=== PATIENT | female | born 1980 | race Caucasian/White ===

== ENCOUNTER → 2016-08-30 | Outpatient (CLI) | payer OTHER ==
[2016-06-19 12:14] VITALS: BP 115/80
--- NOTE | 2016-08-30 16:25 | MRI ---
HISTORY: Muscle strain, neck pain, numbness and tingling Study: MRI cervical spine without contrast Comparison: Radiographs 07/12/2016 Technique: Multiplanar multisequence MRI of the cervical spine was obtained utilizing standard depar tmental protocol. Findings: Alignment of the cervical spine is normal. No abnormal cord or marrow signal is identified. Verteb ral body heights are preserved without evidence of fracture. The prevertebral and paraspinal soft ti ssues are unremarkable. The disc spaces are preserved. C2 -- C3: No significant stenosis identified. C3 -- C4: No significant stenosis identified. C4 -- C5: No significant stenosis identified. C5 -- C6: No significant stenosis identified. C6 -- C7: No significant stenosis identified. C7 -- T1: No significant stenosis identified. IMPRESSION: Unremarkable MRI cervical spine. No significant spinal or foraminal stenosis identified. Reported By:
== END ==
LOC: RAD 13:20
PROVIDERS: ATTEND Nurse Practitioner Family
DX: S16.1XXA Strain of muscle, fascia and tendon at neck level, initial encounter (principal); M54.2 Cervicalgia; R20.2 Paresthesia of skin; M25.531 Pain in right wrist; M25.532 Pain in left wrist
CPT/HCPCS: 72141

== ENCOUNTER 2016-09-20 13:14 | Emergency (ER) | payer OTHER ==
[2016-09-20 13:18] VITALS: BP 141/77; BMI 21.7
--- NOTE | 2016-09-20 13:45 | DR.GENAD ---
HPI - PCP Primary Care Physician: fernando huerta - HPI Comment HPI Comment: PATIENT HAVE HISTORY OF RECTAL BLEEDING. SHE NOTED MELENA STOOL TODAY. DENIES USE OF IRON. ABDOMINAL CRAMPING IS ALSO NOTED. PCP WANTED HER EVALUATED IN ED. DENIES DIZZINESS. - Complaint/Symptoms Chief Complaint Doctors Comments: ABDOMINAL PAIN AND BLACK STOOL NOTED TODAY. Chief Complaint:: black stool, rectal bleeding, abdominal pain - Nurses notes reviewed Nurses Notes Review: Yes - Source History Provided: Patient - Mode of Arrival Mode of Arrival: Ambulatory - Timing Onset of Chief Complaint: 09/20/16 Came on: Suddenly - Duration Duration: Intermittent Duration: Days - Severity Severity: Moderate PMH - PMH Past Medical History: Yes Past Medical History: Seizures Past Surgical History: Yes Surgical History: Appendectomy, Other - Family History History of Family Medical Conditions: Yes Family Medical History: [place], Coronary Artery Disease - Social History Does patient currently use any type of tobacco product: Yes Have you used tobacco products in the last 12 months: Yes Type of Tobacco Use: Cigarettes Does any household member use tobacco: No Alcohol Use: None Do you use any recreational Drugs:: No Lives With: Family Lives Where: Home - infectious screening In the last 2 months have you had wt loss of >10#?: NO Have you had fever, night sweats or hemotysis?: No Have you traveled outside the country in the last 6 months?: No Isolation: Standard ROS - Review of Systems Constitutional: Weakness. negative: Chills, Malaise, Fatigue, Loss of Appetite Eyes: No Symptoms Reported. negative: Eye Pain, Blurred Vision, Discharge ENTM: negative: Ear Pain, Nose Discharge, Nose Congestion, Throat Pain Respiratoy: negative: Productive Cough, Short of Breath, Wheezing, Hemoptysis Cardiovascular: No Symptoms Reported. negative: Chest Pain, Palpitations Gastrointestinal/Abdominal: Abdominal Pain, Nausea. negative: Diarrhea, Vomiting Genitourinary: Pain, Bleeding (RECTAL). negative: Dysuria, Frequency, Hematuria Neurological: Weakness. negative: Headache, Dizziness Musculoskeletal: Muscle Pain Integumentary: No Symptoms Reported Hematologic/Lymphatic: Easy Bleeding Endocrine: No Symptoms Reported All Other Systems: Reviewed and Negative PE - Vital Signs Vitals: Temperature 99.4 F Pulse Rate 125 Respiratory Rate 16 Blood Pressure [Left Arm] 114/58 Blood Pressure 141/77 O2 Sat by Pulse Oximetry 100 - General Limitations: No Limitations General Appearance: Alert - Head Head Exam: Normal Inspection - Eyes Eye exam: Normal Appearance - ENT ENT Exam: Normal External Ear Exam External Ear Exam: Normal External Inspection TM/Canal Exam: Bilateral Normal Nose Exam: Normal Nose Exam Mouth Exam: Normal Inspection Throat Exam: Normal Inspection - Neck Neck Exam: Trachea Midline. negative: Tenderness, Meningismus, Lymphadenopathy - Chest Chest Inspection: Symmetric Chest Wall Rise - Respiratory Respiratory Exam: Normal Lung Sounds Bilat Respiratory Exam: Bilateral Clear to Auscultation - Cardiovascular Cardiovascular Exam: Regular Rate, Normal Rhythm, Normal Heart Sounds - Abdominal Exam Abdominal Exam: Normal Bowel Sounds, Soft. negative: Tenderness, Other (NO HEMOEEHOID SEEN.) Abdominal Tenderness: RLQ, LLQ, Suprapubic, Moderate - Extremities Extremities Exam: Normal Inspection - Back Back Exam: Normal Inspection - Neurologic Neurological Exam: Alert, Oriented X3 - Psychiatric Psychiatric Exam: Normal Affect, Normal Mood - Skin Skin Exam: Normal Color MDM - Differential Diagnosis Differential Diagnosis: ABDOMINAL PAIN, HEMORRHOID, UTI, POLYPS, PUD Course - Treatment Treatment: SEE ORDERS. - Education/Counseling Education/Counseling: Patient, Education Educated On: Treatment, Diagnosis, Needs for Follow Up ROR - Labs Reviewed Laboratory Results Reviewed?: Yes Result Diagrams: 09/20/16 14:10 09/20/16 14:10 Laboratory: WBC 5.7 X10^3/uL (3.6-10.0) 09/20/16 14:10 RBC 5.02 X10^6/uL (3.5-5.4) 09/20/16 14:10 Hgb 14.8 g/dL (12.0-16.0) 09/20/16 14:10 Hct 44.9 % (36.0-47.0) 09/20/16 14:10 MCV 89.4 fL (80.0-100.0) 09/20/16 14:10 MCH 29.6 pg (27.0-34.0) 09/20/16 14:10 MCHC 33.1 g/dL (33.0-35.0) 09/20/16 14:10 RDW 12.6 % (11.6-16.5) 09/20/16 14:10 Plt Count 173 X10^3/uL (150.0-450.0) 09/20/16 14:10 MPV 8.3 fL (7.4-11.0) 09/20/16 14:10 Neut % 58.5 % (42.0-75.0) 09/20/16 14:10 Lymph % 27.5 % (21.0-51.0) 09/20/16 14:10 Dawson % 11.2 % (0.0-13.0) 09/20/16 14:10 Eos % 1.9 % (0.9-2.9) 09/20/16 14:10 Baso % 0.9 % (0.2-1.0) 09/20/16 14:10 Neut # 3.4 x10^3/uL (2.2-4.8) 09/20/16 14:10 Lymph # 1.6 X10^3/uL (1.3-2.9) 09/20/16 14:10 Dawson # 0.6 x10^3/uL (0.3-0.8) 09/20/16 14:10 Eos # 0.1 x10^3/uL (0.0-0.2) 09/20/16 14:10 Baso # 0.1 X10^3/uL (0.0-0.1) 09/20/16 14:10 Absolute Nucleated RBC 0.0 /100WBC 09/20/16 14:10 Sodium 141 mmol/L (136-145) 09/20/16 14:10 Corrected Sodium TNP 09/20/16 14:10 Potassium 3.9 mmol/L (3.5-5.1) 09/20/16 14:10 Chloride 105 mmol/L (98-107) 09/20/16 14:10 Carbon Dioxide 27.0 mmol/L (21-32) 09/20/16 14:10 BUN 14 mg/dL (7-18) 09/20/16 14:10 Creatinine 0.96 mg/dL (0.55-1.02) 09/20/16 14:10 Est GFR (MDRD) Af Amer > 60 (>60) 09/20/16 14:10 Est GFR (MDRD) Non-Af > 60 (>60) 09/20/16 14:10 Glucose 79 mg/dL (65-99) 09/20/16 14:10 Calcium 9.2 mg/dL (8.5-10.1) 09/20/16 14:10 Corrected Calcium TNP 09/20/16 14:10 Total Bilirubin 0.70 mg/dL (0.2-1.0) 09/20/16 14:10 AST 47 Units/L (15-37) H 09/20/16 14:10 ALT 52 Units/L (12-78) 09/20/16 14:10 Alkaline Phosphatase 58 Units/L (46-116) 09/20/16 14:10 Total Protein 8.1 g/dL (6.4-8.2) 09/20/16 14:10 Albumin 4.1 g/dL (3.4-5.0) 09/20/16 14:10 Globulin 4.0 g/dL (2.5-4.5) 09/20/16 14:10 Albumin/Globulin Ratio 1.0 Ratio (1.1-2.1) L 09/20/16 14:10 Stool Description Fob tube 09/20/16 14:09 Stl Occult Blood (IFOB) Negative (NEGATIVE) 09/20/16 14:09 - XRAY XRAY Interpreted by: Radiologist XRAY Findings: REPORT DISCUSS WITH PATIENT. - Diagnosis Discharge Problem: History of melena Abdominal pain Qualifiers: Abdominal location: lower abdomen, unspecified Qualified Code(s): R10.30 - Lower abdominal pain, unspecified - Discharge Plan Disposition: HOME, SELF-CARE Condition: Stable Prescriptions: Ranitidine HCl [ZANTAC TAB 150 MG *] 150 mg PO BID #60 tab - Follow ups/Referrals Follow ups/Referrals: FERNANDO HUERTA [Primary Care Provider] - 09/21/16 - Instructions Instructions: Abdominal Pain, Adult, [id number], Gastrointestinal Bleeding Additional Instructions: RETURN TO ED IF WORSE.
[2016-09-20 14:18] LABS: BASOPHILS # (AUTO) 0.1 X10^3/uL (0.0-0.1); BASOPHILS % (AUTO) 0.9 % (0.2-1.0); EOSINOPHILS # (AUTO) 0.1 x10^3/uL (0.0-0.2); EOSINOPHILS % (AUTO) 1.9 % (0.9-2.9); HEMATOCRIT 44.9 % (36.0-47.0); HEMOGLOBIN 14.8 g/dL (12.0-16.0); LYMPHOCYTES # (AUTO) 1.6 X10^3/uL (1.3-2.9); LYMPHOCYTES % (AUTO) 27.5 % (21.0-51.0); MEAN CORPUSCULAR HEMOGLOBIN 29.6 pg (27.0-34.0); MEAN CORPUSCULAR HGB CONC 33.1 g/dL (33.0-35.0); MEAN CORPUSCULAR VOLUME 89.4 fL (80.0-100.0); MEAN PLATELET VOLUME 8.3 fL (7.4-11.0); MONOCYTES # (AUTO) 0.6 x10^3/uL (0.3-0.8); MONOCYTES % (AUTO) 11.2 % (0.0-13.0); NEUTROPHILS # (AUTO) 3.4 x10^3/uL (2.2-4.8); NEUTROPHILS % (AUTO) 58.5 % (42.0-75.0); PLATELET COUNT 173 X10^3/uL (150.0-450.0); RED BLOOD COUNT 5.02 X10^6/uL (3.5-5.4); RED CELL DISTRIBUTION WIDTH 12.6 % (11.6-16.5); WHITE BLOOD COUNT 5.7 X10^3/uL (3.6-10.0)
--- NOTE | 2016-09-20 14:34 | RAD ---
HISTORY: Abdominal pain Study: Acute abdominal series Comparison: April 12, 2016 Findings: The trachea is midline. The cardiac silhouette is unremarkable. The lungs are clear without focal infiltrate or effusion. The bony thorax is unremarkable. Flat plate and upright evaluation of the abdomen demonstrates a normal bowel gas pattern. No pneumop eritoneum is identified . . No pathological soft tissue mass or calcification can be observed. The bony structures are grossly intact. IMPRESSION: 1. No acute cardiopulmonary disease. 2. No evidence for acute abdominal pathology identified. Reported By:
[2016-09-20 14:40] LABS: ALANINE AMINOTRANSFERASE 52 Units/L (12-78); ALBUMIN 4.1 g/dL (3.4-5.0); ALKALINE PHOSPHATASE 58 Units/L (46-116); ASPARTATE AMINO TRANSFERASE 47 Units/L (15-37); BLOOD UREA NITROGEN 14 mg/dL (7-18); CALCIUM 9.2 mg/dL (8.5-10.1); CHLORIDE 105 mmol/L (98-107); CREATININE 0.96 mg/dL (0.55-1.02); GLUCOSE 79 mg/dL (65-99); SODIUM 141 mmol/L (136-145); TOTAL PROTEIN 8.1 g/dL (6.4-8.2); eGFR BLACK RACES > 60 (>60); eGFR NON BLACK RACES > 60 (>60)
== END 2016-09-20 15:40 | disposition home or self-care (01) ==
LOC: ER 13:29
DX: R10.31 Right lower quadrant pain (principal); Z87.19 Personal history of other diseases of the digestive system
CPT/HCPCS: 36415; 74022; 80053; 82270; 85025; 99282

== ENCOUNTER 2016-12-29 20:14 | Emergency (ER) | payer OTHER ==
[2016-12-29 20:20] VITALS: BP 119/75; BMI 18.8
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
--- NOTE | 2016-12-29 21:27 | RAD ---
History: Pain after injury to nose this morning Study: Four views of the nasal bones Findings: There is no fracture or depression. The paranasal sinuses are grossly clear. Impression: Negative Reported By:
[2016-12-29] MEDS ORDERED: TORADOL 60 MG VIAL IM ONE (21:37)
[2016-12-29] MEDS ORDERED: TORADOL 60 MG VIAL ONE (21:39)
== END 2016-12-29 22:20 | disposition home or self-care (01) ==
LOC: ER 20:27
DX: S00.33XA Contusion of nose, initial encounter (principal); X58.XXXA Exposure to other specified factors, initial encounter; Y92.9 Unspecified place or not applicable
CPT/HCPCS: 70160; 96372; 99282; J1885

== ENCOUNTER 2017-02-14 18:30 | Emergency (ER) | payer OTHER ==
[2017-02-14 18:35] VITALS: BP 137/86; BMI 18.6
--- NOTE | 2017-02-14 19:16 | DR.GENAD ---
HPI - Complaint/Symptoms Chief Complaint Doctors Comments: Patient states that she stands on her feet 12- `13 hours per day for six days while working. 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 - Family History History of Family Medical Conditions: Yes Family Medical History: [place], Coronary Artery Disease - Social History Do you use any recreational Drugs:: No - infectious screening Have you traveled outside the country in the last 6 months?: No ROS - Review of Systems Constitutional: negative: Diaphoresis Eyes: No Symptoms Reported ENTM: No Symptoms Reported Respiratoy: No Symptoms Reported Cardiovascular: No Symptoms Reported Gastrointestinal/Abdominal: No Symptoms Reported Genitourinary: No Symptoms Reported Neurological: No Symptoms Reported Musculoskeletal: No Symptoms Reported Integumentary: No Symptoms Reported Hematologic/Lymphatic: No Symptoms Reported Endocrine: No Symptoms Reported Psychiatric: No Symptoms Reported All Other Systems: Reviewed and Negative PE - Vital Signs Vitals: Temperature 98.2 F Pulse Rate 100 Respiratory Rate 18 Blood Pressure [Left Arm] 114/58 Blood Pressure 137/86 O2 Sat by Pulse Oximetry 100 - General Limitations: No Limitations General Appearance: Alert, In No Apparent Distress - Head Head Exam: Normal Inspection, Atraumatic - Eyes Eye exam: Normal Appearance, PERRL, EOMI - ENT ENT Exam: Normal Exam External Ear Exam: Normal External Inspection TM/Canal Exam: Bilateral Normal Nose Exam: Normal Nose Exam, Sinus Tenderness Mouth Exam: Normal Inspection Throat Exam: Normal Inspection - Neck Neck Exam: Normal Inspection - Chest Chest Inspection: Normal Inspection - Respiratory Respiratory Exam: Normal Lung Sounds Bilat Respiratory Exam: Bilateral Clear to Auscultation - Cardiovascular Cardiovascular Exam: Regular Rate, Normal Rhythm - Abdominal Exam Abdominal Exam: Normal Inspection, Normal Bowel Sounds Abdominal Tenderness: negative: RUQ, RLQ, LUQ, LLQ, Epigastrium, Suprapubic, Diffuse, Mild, Moderate, Severe, Other - Extremities Extremities Exam: Normal Inspection, Full ROM, Other (right foot admits to pain to touching heel) - Back Back Exam: Normal Inspection, Full ROM - Neurologic Neurological Exam: Alert, Oriented X3, CN II-XII Intact - Psychiatric Psychiatric Exam: Normal Affect, Normal Mood - Skin Skin Exam: Warm, Dry, Intact ROR - XRAY XRAY Interpreted by: Self (Foot: negative) - Diagnosis Discharge Problem: Plantar fasciitis, right - Discharge Plan Condition: Stable - Follow ups/Referrals Follow ups/Referrals: SIGRID DUNLAP [Primary Care Provider] - 3 days - Instructions
--- NOTE | 2017-02-14 22:12 | RAD ---
Three views of the right foot Indication: Heel pain. Findings: There is no fracture dislocation within the right foot. Lisfranc joint alignment is maintai jade. No localizing soft tissue swelling. No enthesopathic change of the plantar fascia or Achilles te ndon. There is moderate degenerative change within dorsal talonavicular joint suspected represent seq uela chronic talonavicular capsular avulsion injury. No localizing soft tissue swelling. Impression: 1.No acute radiographic abnormality identified within the right foot. 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 Reported By:
== END 2017-02-14 20:05 | disposition home or self-care (01) ==
LOC: ER 18:40
DX: M72.2 Plantar fascial fibromatosis (principal)
CPT/HCPCS: 73630; 99281; 99282

== ENCOUNTER → 2017-03-15 | Outpatient (CLI) | payer OTHER ==
[2017-02-14 18:35] VITALS: BP 137/86
--- NOTE | 2017-03-15 10:10 | RAD ---
HISTORY: Cough Study: Two views of the chest Comparison: 09/20/2016 Findings: The patient is rotated. The cardiac silhouette is unremarkable. The lungs are clear without focal i nfiltrate or effusion. IMPRESSION: 1. No acute cardiopulmonary disease. Reported By:
== END ==
LOC: RAD 09:16
PROVIDERS: ATTEND Nurse Practitioner Family
DX: R05 Cough (principal)
CPT/HCPCS: 71020

== ENCOUNTER 2017-06-24 18:36 | Emergency (ER) | payer OTHER ==
[2017-06-24 18:48] VITALS: BMI 20.3
--- NOTE | 2017-06-24 19:17 | DR.GENAD ---
HPI - PCP Primary Care Physician: GERMÁN - HPI Comment HPI Comment: DIARRHEA DECREASING. HEADACHE GETTING WORSE. HOME MEDS DID NOT HELP. - Complaint/Symptoms Chief Complaint Doctors Comments: MIGRAINE HEADACHE AND DIARRHEA. HEADACHE WITH N/V AND PHOTOPHOBIA. NO FEVER. 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 Past Surgical History Comment: SINUS - Family History History of Family Medical Conditions: Yes Family Medical History: [place], Coronary Artery Disease - Social History Type of Tobacco Use: Cigarettes Does any household member use tobacco: No Alcohol Use: None Do you use any recreational Drugs:: No Lives With: Family Lives Where: Home - infectious screening In the last 2 months have you had wt loss of >10#?: NO Have you had fever, night sweats or hemotysis?: No Have you traveled outside the country in the last 6 months?: No Isolation: Standard ROS - Review of Systems Constitutional: No Symptoms Reported Eyes: Photophobia. negative: Eye Pain, Discharge ENTM: No Symptoms Reported. negative: Ear Pain, Nose Discharge, Nose Congestion , Throat Pain Respiratoy: No Symptoms Reported Cardiovascular: No Symptoms Reported Gastrointestinal/Abdominal: Diarrhea, Nausea, Vomiting Genitourinary: No Symptoms Reported Neurological: Headache Musculoskeletal: No Symptoms Reported Integumentary: No Symptoms Reported Hematologic/Lymphatic: No Symptoms Reported Endocrine: No Symptoms Reported All Other Systems: Reviewed and Negative PE - Vital Signs Vitals: Temperature 98.5 F Pulse Rate 85 Respiratory Rate 18 Blood Pressure [Left Arm] 114/58 Blood Pressure 96/54 O2 Sat by Pulse Oximetry 100 - General Limitations: No Limitations General Appearance: Alert - Head Head Exam: Normal Inspection - Eyes Eye exam: Normal Appearance - ENT ENT Exam: Normal External Ear Exam External Ear Exam: Normal External Inspection TM/Canal Exam: Bilateral Normal Nose Exam: Normal Nose Exam Mouth Exam: Normal Inspection Throat Exam: Normal Inspection - Neck Neck Exam: Normal Inspection - Chest Chest Inspection: Symmetric Chest Wall Rise - Respiratory Respiratory Exam: Normal Lung Sounds Bilat Respiratory Exam: Bilateral Clear to Auscultation - Cardiovascular Cardiovascular Exam: Regular Rate, Normal Rhythm, Normal Heart Sounds - Abdominal Exam Abdominal Exam: Normal Bowel Sounds, Soft. negative: Tenderness - Extremities Extremities Exam: Normal Inspection - Back Back Exam: Normal Inspection - Neurologic Neurological Exam: Alert, Oriented X3 - Psychiatric Psychiatric Exam: Normal Affect, Normal Mood - Skin Skin Exam: Normal Color MDM - Additional Information Additional Information Obtained From: Family - Differential Diagnosis Differential Diagnosis: MIGRAINE HEADACHE Course - Treatment Treatment: SEE ORDERS. - Education/Counseling Education/Counseling: Patient, Family, Education Educated On: Treatment, Diagnosis, Needs for Follow Up - Diagnosis Discharge Problem: Migraine Qualifiers: Migraine type: with aura Status migrainosus presence: without status migrainosus Intractability: intractable Qualified Code(s): G43.119 - Migraine with aura, intractable, without status migrainosus - Discharge Plan Condition: Stable Prescriptions: [id number] [Fioricet Tab] 1 tab PO Q8H PRN #20 tab PRN Reason: Migraine Headache Diphenoxylate/Atropine [Lomotil] 1 tab PO TID #15 tab Ondansetron [Zofran ODT 8 mg] 8 mg PO Q8H PRN #12 tab PRN Reason: Nausea/Vomiting - Follow ups/Referrals Follow ups/Referrals: SIGRID DUNLAP [Primary Care Provider] - 3 days - Instructions Instructions: Migraine Headache, [id number]
[2017-06-24] MEDS ORDERED: DEMEROL INJ IM ONE (19:20)
[2017-06-24] MEDS ORDERED: PHENERGAN INJ 25 MG IM ONE (19:20)
[2017-06-24] MEDS ORDERED: DEMEROL INJ ONE (19:32)
[2017-06-24] MEDS ORDERED: PHENERGAN INJ 25 MG ONE (19:32)
[2017-06-24 20:17] VITALS: BP 95/53
== END 2017-06-24 20:18 | disposition home or self-care (01) ==
LOC: ER 18:53
DX: G43.119 Migraine with aura, intractable, without status migrainosus (principal)
CPT/HCPCS: 96372; 99282; J2175; J2550

== ENCOUNTER 2017-06-30 22:46 | Emergency (ER) | payer OTHER ==
[2017-06-30 22:53] VITALS: BP 115/84; BMI 21.2
[2017-06-30 23:33] LABS: BASOPHILS # (AUTO) 0.1 X10^3/uL (0.0-0.1); BASOPHILS % (AUTO) 1.1 % (0.2-1.0); EOSINOPHILS # (AUTO) 0.2 x10^3/uL (0.0-0.2); HEMATOCRIT 41.8 % (36.0-47.0); HEMOGLOBIN 14.2 g/dL (12.0-16.0); LYMPHOCYTES # (AUTO) 2.1 X10^3/uL (1.3-2.9); LYMPHOCYTES % (AUTO) 34.4 % (21.0-51.0); MEAN CORPUSCULAR HEMOGLOBIN 30.1 pg (27.0-34.0); MEAN CORPUSCULAR VOLUME 88.6 fL (80.0-100.0); MEAN PLATELET VOLUME 7.4 fL (7.4-11.0); MONOCYTES # (AUTO) 0.6 x10^3/uL (0.3-0.8); MONOCYTES % (AUTO) 9.5 % (0.0-13.0); NEUTROPHILS # (AUTO) 3.2 x10^3/uL (2.2-4.8); PLATELET COUNT 233 X10^3/uL (150.0-450.0); RED BLOOD COUNT 4.72 X10^6/uL (3.5-5.4); RED CELL DISTRIBUTION WIDTH 13.7 % (11.6-16.5); WHITE BLOOD COUNT 6.2 X10^3/uL (3.6-10.0)
[2017-06-30 23:40] LABS: BILIRUBIN,URINE NEGATIVE (NEGATIVE); BLOOD/HEMOGLOBIN,URINE NEGATIVE (NEGATIVE); GLUCOSE, URINE NEGATIVE (NEGATIVE); KETONES,URINE NEGATIVE (NEGATIVE); LEUKOCYTE ESTERASE ,URINE NEGATIVE (NEGATIVE); NITRITES,URINE NEGATIVE (NEGATIVE); PROTEIN,URINE NEGATIVE (NEGATIVE); UROBILINOGEN,URINE NORMAL (NORMAL)
--- NOTE | 2017-06-30 23:49 | DR.GENAD ---
HPI - Complaint/Symptoms Chief Complaint Doctors Comments: Patient presents with complaint of migraine headache. She takes no medication. Onset of headache today. The episode of blood pressure medication occured two weeks ago. Chief Complaint:: PT C/O "MY HEART FEELS FUNNY" STATES THAT SHE WAS SUPPOSED TO TAKE 1/2 OF A 25MG TABLET OF LOPRESSOR BUT MISUNDERSTOOD THE DIRECTIONS AND WAS TAKING 2 25MG TABLETS PER DAY. PT STATES SHE RAN OUT OF HER BP MEDS EARLY AND REALIZED WHAT SHE HAD DONE. STATES HE CHEST BEGAN FEELING FUNNY TODAY AND SHE HAS A "REALLY BAD HEADACHE" EV PRICE - Source History Provided: Patient - Mode of Arrival Mode of Arrival: Ambulatory - Timing Onset of Chief Complaint: 06/30/17 PMH - PMH Past Medical History: Yes Past Medical History: Anxiety, GERD, Schizophrenia, Seizures Past Surgical History: Yes Surgical History: Abdominal Surgery, Appendectomy, [employer] Surgery - Family History History of Family Medical Conditions: Yes Family Medical History: PA, Coronary Artery Disease - Social History Do you use any recreational Drugs:: No - infectious screening Have you traveled outside the country in the last 6 months?: No ROS - Review of Systems Eyes: No Symptoms Reported ENTM: No Symptoms Reported Respiratoy: No Symptoms Reported Cardiovascular: No Symptoms Reported Gastrointestinal/Abdominal: No Symptoms Reported Genitourinary: No Symptoms Reported Neurological: No Symptoms Reported Musculoskeletal: No Symptoms Reported Integumentary: No Symptoms Reported Hematologic/Lymphatic: No Symptoms Reported Endocrine: No Symptoms Reported Psychiatric: No Symptoms Reported All Other Systems: Reviewed and Negative PE - Vital Signs Vitals: Temperature 98.3 F Pulse Rate 94 Respiratory Rate 18 Blood Pressure [Right Arm] 95/53 Blood Pressure [Left Arm] 114/58 Blood Pressure 115/84 O2 Sat by Pulse Oximetry 99 - General Limitations: No Limitations General Appearance: Alert, In No Apparent Distress - Head Head Exam: Normal Inspection, Atraumatic - Eyes Eye exam: Normal Appearance, PERRL, EOMI - ENT ENT Exam: Normal Exam External Ear Exam: Normal External Inspection TM/Canal Exam: Bilateral Normal Nose Exam: Normal Nose Exam, Sinus Tenderness Mouth Exam: Normal Inspection Throat Exam: Normal Inspection - Neck Neck Exam: Normal Inspection, Full ROM - Chest Chest Inspection: Normal Inspection - Respiratory Respiratory Exam: Normal Lung Sounds Bilat Respiratory Exam: Bilateral Clear to Auscultation - Cardiovascular Cardiovascular Exam: Regular Rate, Normal Rhythm - Abdominal Exam Abdominal Exam: Normal Inspection, Normal Bowel Sounds Abdominal Tenderness: negative: RUQ, RLQ, LUQ, LLQ, Epigastrium, Suprapubic, Diffuse, Mild, Moderate, Severe, Other - Extremities Extremities Exam: Normal Inspection - Back Back Exam: Normal Inspection, Full ROM - Neurologic Neurological Exam: Alert, Oriented X3, CN II-XII Intact - Psychiatric Psychiatric Exam: Normal Affect - Skin Skin Exam: Warm, Dry, Intact ROR - Labs Reviewed Result Diagrams: 06/30/17 23:20 06/30/17 23:21 Laboratory: WBC 6.2 X10^3/uL (3.6-10.0) 06/30/17 23:20 RBC 4.72 X10^6/uL (3.5-5.4) 06/30/17 23:20 Hgb 14.2 g/dL (12.0-16.0) 06/30/17 23:20 Hct 41.8 % (36.0-47.0) 06/30/17 23:20 MCV 88.6 fL (80.0-100.0) 06/30/17 23:20 MCH 30.1 pg (27.0-34.0) 06/30/17 23:20 MCHC 34.0 g/dL (33.0-35.0) 06/30/17 23:20 RDW 13.7 % (11.6-16.5) 06/30/17 23:20 Plt Count 233 X10^3/uL (150.0-450.0) 06/30/17 23:20 MPV 7.4 fL (7.4-11.0) 06/30/17 23:20 Neut % 52.0 % (42.0-75.0) 06/30/17 23:20 Lymph % 34.4 % (21.0-51.0) 06/30/17 23:[address] [place] % 9.5 % (0.0-13.0) 06/30/17 23:20 Eos % 3.0 % (0.9-2.9) H 06/30/17 23:20 Baso % 1.1 % (0.2-1.0) H 06/30/17 23:20 Neut # 3.2 x10^3/uL (2.2-4.8) 06/30/17 23:20 Lymph # 2.1 X10^3/uL (1.3-2.9) 06/30/17 23:20 [place] # 0.6 x10^3/uL (0.3-0.8) 06/30/17 23:20 Eos # 0.2 x10^3/uL (0.0-0.2) 06/30/17 23:20 Baso # 0.1 X10^3/uL (0.0-0.1) 06/30/17 23:20 Absolute Nucleated RBC 0.0 /100WBC 06/30/17 23:20 INR Target Range - 06/30/17 23:21 INR 0.99 (0.8-1.3) 06/30/17 23:21 PTT 26.9 SECONDS (22.9-36.5) 06/30/17 23:21 PTT Comment - 06/30/17 23:21 Specimen Type Clean catch urine 06/30/17 23:10 Urine Color Pale yellow (YELLOW) 06/30/17 23:10 Urine Appearance Clear (CLEAR) 06/30/17 23:10 Urine pH 7.0 (5.0 - 8.0) 06/30/17 23:10 Ur Specific [place] 1.005 (1.000-1.030) 06/30/17 23:10 Urine Protein Negative (NEGATIVE) 06/30/17 23:10 Urine Glucose (UA) Negative (NEGATIVE) 06/30/17 23:10 Urine Ketones Negative (NEGATIVE) 06/30/17 23:10 Urine Occult Blood Negative (NEGATIVE) 06/30/17 23:10 Urine Nitrite Negative (NEGATIVE) 06/30/17 23:10 Urine Bilirubin Negative (NEGATIVE) 06/30/17 23:10 Urine Urobilinogen Normal (NORMAL) 06/30/17 23:10 Ur Leukocyte Esterase Negative (NEGATIVE) 06/30/17 23:10 Urine RBC None seen /HPF (NEGATIVE) 06/30/17 23:10 Urine WBC None seen /HPF (NEGATIVE) 06/30/17 23:10 Ur Squamous Epith Cells Rare /HPF (NEGATIVE) 06/30/17 23:10 Urine Bacteria Negative /HPF (NEGATIVE) 06/30/17 23:10 Ur Culture Indicated? No/not indicated 06/30/17 23:10 - XRAY XRAY Interpreted by: Radiologist (Chest: No acute chest process) - Diagnosis Discharge Problem: Migraine headache Qualifiers: Migraine type: without aura Status migrainosus presence: without status migrainosus Intractability: not intractable Qualified Code(s): G43.009 - Migraine without aura, not intractable, without status migrainosus - Discharge Plan Condition: Stable - Follow ups/Referrals Follow ups/Referrals: SIGRID DUNLAP [Primary Care Provider] - 3 days - Instructions
[2017-06-30 23:50] LABS: BLOOD UREA NITROGEN 15 mg/dL (7-18); CALCIUM 9.1 mg/dL (8.5-10.1); CARBON DIOXIDE 27.7 mmol/L (21-32); CHLORIDE 103 mmol/L (98-107); CREATININE 0.78 mg/dL (0.55-1.02); SODIUM 138 mmol/L (136-145); TROPONIN I < 0.02 ng/mL (0-1.5); eGFR BLACK RACES > 60 (>60); eGFR NON BLACK RACES > 60 (>60)
[2017-06-30 23:52] LABS: APPEARANCE,URINE CLEAR (CLEAR); BACTERIA,URINE NEGATIVE /HPF (NEGATIVE); COLOR,URINE PALE YELLOW (YELLOW); RBC,URINE NONE SEEN /HPF (NEGATIVE); SQUAMOUS EPITHELIAL CELL,UR RARE /HPF (NEGATIVE)
[2017-06-30 23:53] LABS: B-TYPE NATRIURETIC PEPTIDE 11.7 pg/mL (0-79)
[2017-06-30 23:55] LABS: ALANINE AMINOTRANSFERASE 79 Units/L (12-78); ALBUMIN 3.5 g/dL (3.4-5.0); ALKALINE PHOSPHATASE 89 Units/L (46-116); ASPARTATE AMINO TRANSFERASE 59 Units/L (15-37); CREATINE KINASE 96 Units/L (26-192); CREATINE KINASE MB < 1.0 ng/mL (0-4.0); TOTAL PROTEIN 7.4 g/dL (6.4-8.2)
[2017-07-01] MEDS ORDERED: BENADRYL INJ 50 MG VIAL IV ONE (00:07)
[2017-07-01] MEDS ORDERED: NS 1000 ML 500 ML IV ONE (00:08)
[2017-07-01] MEDS ORDERED: COMPAZINE INJ IVP ONE (00:08)
[2017-07-01] MEDS ORDERED: NS 1000 ML 1,000 ML ONE (00:13)
[2017-07-01] MEDS ORDERED: COMPAZINE INJ ONE (00:14)
[2017-07-01] MEDS ORDERED: BENADRYL INJ 50 MG VIAL ONE (00:14)
--- NOTE | 2017-07-01 00:51 | RAD ---
Chest AP portable Indication: Chest pain and headache Comparison: 03/15/2017 Findings: Monitoring leads obscure moderate detail. There is no pneumothorax or effusion. There is no consolidation. Heart size is normal. Impression: No acute chest process. Reported By:
== END 2017-07-01 01:00 | disposition home or self-care (01) ==
LOC: ER 22:56
DX: G43.009 Migraine without aura, not intractable, without status migrainosus (principal)
CPT/HCPCS: 36415; 71045; 80053; 81001; 82550; 82553; 83880; 84484; 85025; 85610; 85730; 93005; 93010; 96365; 96374; 96375; 99282; 99283; A4222; J0780; J1200

== ENCOUNTER 2018-02-28 06:24 | Inpatient (IN) ==
[2018-02-28] MEDS ORDERED: D5LR 1L W PITOCIN 10 UNITS/L 10 UNITS/1,000 ML BAG IV ONE (06:26)
[2018-02-28] MEDS ORDERED: D5 1/2 NS 1L W PITOCIN 20 UNITS/L 20 UNITS/1,000 ML BAG IV ONE (06:27)
[2018-02-28] MEDS ORDERED: PITOCIN ONE (06:27)
[2018-02-28] MEDS ORDERED: D5 1/2 NS 1000 ML 1,000 ML IV ONE (06:27)
[2018-02-28] MEDS ORDERED: D5LR 1L W PITOCIN 10 UNITS/L 10 UNITS/1,000 ML BAG IV PRN (06:56)
[2018-02-28] MEDS ORDERED: PITOCIN IVP ONE (06:56)
[2018-02-28] MEDS ORDERED: D5 1/2 NS 1000 ML 1,000 ML IV SCH (06:56)
[2018-02-28] MEDS ORDERED: MORPHINE SULFATE INJ 2 MG INJ IVP PRN (06:56)
[2018-02-28] MEDS ORDERED: PHENERGAN INJ 25 MG IV PRN ×2 (06:56→10:36)
[2018-02-28] MEDS ORDERED: REGLAN INJ 10 MG VIAL IVP PRN (06:56)
[2018-02-28] MEDS ORDERED: NUBAIN INJ 200 MG VIAL MULTIDOSE IVP PRN (06:56)
--- NOTE | 2018-02-28 07:17 | DR.OB ---
OB Quick Note - Assessment/Plan Assessment/Plan: L&D 02/28/18 at 6:50am S-No complaint. O-Afebrile,VSS TUD=787 with good LTV, +accel, no decel. CTX=occasional, mild CVX=2-3cm/50%/-1/VTX AROM with clear fluid. IUPC and FSE placed. A-IUP at 37 5/7 weeks for induction IUGR PIH AMA Schizophrenia/bipolar P-Begin pitocin induction F/U labs Anticipate
[2018-02-28 07:18] LABS: URIC ACID 4.3 mg/dL (2.6-6.0)
[2018-02-28] MEDS ORDERED: PHENERGAN INJ 25 MG ONE (09:19)
[2018-02-28] MEDS ORDERED: NUBAIN INJ 10 ONE (09:42)
[2018-02-28] MEDS: D5 1/2 NS 1000 ML 1,000 ML with PITOCIN 20 UNITS IV SCH ×4 (10:20→19:48)
[2018-02-28] MEDS ORDERED: XYLOCAINE 1 % (PLAIN) ONE (10:25)
[2018-02-28] MEDS ORDERED: DERMOPLAST SPRAY TOP PRN (11:21)
[2018-02-28] MEDS ORDERED: AMBIEN PO PRN (11:21)
[2018-02-28] MEDS ORDERED: MILK OF MAGNESIA PO PRN (11:21)
[2018-02-28] MEDS ORDERED: ADACEL or BOOSTRIX TDaP VACCINE IM ONE (11:21)
[2018-02-28] MEDS: MOTRIN TAB 800 MG PO PRN ×2 (12:02→20:00)
[2018-02-28] MEDS: NICOTINE PATCH TD SCH (12:52)
--- NOTE | 2018-02-28 13:32 | DR.OB ---
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 Head delivered over intact perineum. No nuchal cord. Nose and mouth bulb suctioned. Body delivered over intact perineum. Cord clamped x 2 and cut. Infant handed to attendant. Cord sent for gases. Placenta delivered spontaneously / intact / 3 vessel cord. No CVX / vaginal / perineal tear. A small right sidewall laceration was superficial but bleeding--required a figure-of-8 stitch of 0-vicryl. Viable female , VTX/OA, wt=6'1" and 9/9, stable to NBN. Mother stable to RR. NXS=138ht.
[2018-02-28] MEDS: ZANTAC PO SCH (19:59)
[2018-03-01] MEDS: D5 1/2 NS 1000 ML 1,000 ML with PITOCIN 20 UNITS IV SCH ×2 (05:19)
[2018-03-01 05:20] LABS: HEMOGLOBIN 11.8 g/dL (12.0-16.0)
[2018-03-01] MEDS: MOTRIN TAB 800 MG PO PRN (06:26)
[2018-03-01] MEDS: NICOTINE PATCH TD SCH (08:28)
[2018-03-01] MEDS: ZANTAC PO SCH (08:28)
[2018-03-01 08:29] VITALS: BP 116/69
[2018-03-01] MEDS ORDERED: PRENATAL PLUS PO SCH (09:00)
== END 2018-03-01 12:31 | disposition home or self-care (01) | DRG 807 ==
LOC: LD 06:24 → MED/SURG 11:22
PROVIDERS: ADMIT Specialist; ATTEND Specialist
DX: O70.1 Second degree perineal laceration during delivery; O36.5930 Maternal care for other known or suspected poor fetal growth, third trimester, not applicable or unspecified; O99.343 Other mental disorders complicating pregnancy, third trimester; O13.3 Gestational [pregnancy-induced] hypertension without significant proteinuria, third trimester; Z37.0 Single live birth; Z3A.38 38 weeks gestation of pregnancy; O09.513 Supervision of elderly primigravida, third trimester; Z01.818 Encounter for other preprocedural examination
CPT/HCPCS: 36415; 59409; 80048; 80307; 81001; 83615; 84112; 84450; 84460; 84550; 85014; 85018; 85025; 85384; 85610; 85730; 86592; 86850; 86900; 86901; 99284; A4222; S0197; G0434; J2300; J2550; J2590; S5010

== ENCOUNTER 2021-12-14 06:10 | Inpatient (IN) ==
[2021-12-14] MEDS ORDERED: NS 100 ML IV 100 ML ONE ×3 (06:31→14:19)
[2021-12-14] MEDS ORDERED: D5 1/2 NS 1,000 ML 1,000 ML IV ONE (06:31)
[2021-12-14] MEDS ORDERED: AMPICILLIN VIAL 2 GRAM ONE (06:31)
[2021-12-14] MEDS ORDERED: PITOCIN ONE (06:31)
[2021-12-14] MEDS ORDERED: BETADINE SOLN ONE (06:31)
[2021-12-14] MEDS ORDERED: D5 1/2 NS 1,000 mL + PITOCIN 20 UNITS/L IV 20 UNITS/1,000 ML BAG IV ONE (06:32)
[2021-12-14] MEDS ORDERED: D5 LR + PITOCIN 10 UNITS/L 10 UNITS/1,000 ML BAG IV ONE (06:32)
[2021-12-14] MEDS ORDERED: AMPICILLIN VIAL 2 GRAM 2 G in NS 100 ML IV 100 ML IV ONE (06:50)
[2021-12-14] MEDS: D5 1/2 NS 1,000 ML 1,000 ML IV SCH ×2 (06:50→18:43)
--- NOTE | 2021-12-14 07:15 | DR.OB ---
OB Quick Note - Assessment/Plan Assessment/Plan: L&D 12/14/21 at 6:55am S-No complaint. O-Afebrile,VSS ATL=748 with good LTV, +accel, no decel. CTX=none CVX=2cm/50%/-1/VTX AROM with clear fluid. IUPC and FSE placed. A-IUP at 39 2/7 weeks for induction +GBS AMA Bipolar d.o. P-Begin pitocin induction IV ABX in labor for +GBS Anticipate
[2021-12-14] MEDS ORDERED: PITOCIN IVP ONE (07:46)
[2021-12-14] MEDS ORDERED: NUBAIN INJ 200 MG VIAL MULTIDOSE IVP PRN (07:46)
[2021-12-14] MEDS ORDERED: PHENERGAN INJ 25 MG IM PRN ×2 (07:46→18:31)
[2021-12-14] MEDS ORDERED: D5 LR + PITOCIN 10 UNITS/L 10 UNITS/1,000 ML BAG IV PRN (07:46)
[2021-12-14] MEDS ORDERED: MORPHINE SULFATE INJ 2 MG INJ IVP PRN (07:46)
[2021-12-14] MEDS ORDERED: REGLAN INJ 10 MG VIAL IVP PRN (07:46)
[2021-12-14 08:04] LABS: BILIRUBIN,URINE NEGATIVE (NEGATIVE); BLOOD/HEMOGLOBIN,URINE NEGATIVE (NEGATIVE); GLUCOSE, URINE NEGATIVE (NEGATIVE); KETONES,URINE NEGATIVE (NEGATIVE); LEUKOCYTE ESTERASE ,URINE 1+ (NEGATIVE); NITRITES,URINE NEGATIVE (NEGATIVE); PROTEIN,URINE NEGATIVE (NEGATIVE); UROBILINOGEN,URINE NORMAL (NORMAL)
[2021-12-14 08:13] LABS: APPEARANCE,URINE CLEAR (CLEAR); COLOR,URINE YELLOW (YELLOW)
[2021-12-14 08:14] LABS: BACTERIA,URINE NEGATIVE /HPF (NEGATIVE); RBC,URINE 0-2 /HPF (0-3); SQUAMOUS EPITHELIAL CELL,UR FEW /HPF (NEGATIVE)
[2021-12-14 08:22] LABS: BASOPHILS % (AUTO) 0.4 % (0.2-1.0); EOSINOPHILS # (AUTO) 0.1 x10^3/uL (0.0-0.2); HEMATOCRIT 37.5 % (36.0-47.0); HEMOGLOBIN 12.9 g/dL (12.0-16.0); LYMPHOCYTES # (AUTO) 1.2 X10^3/uL (1.3-2.9); MEAN CORPUSCULAR HEMOGLOBIN 29.9 pg (27.0-34.0); MEAN CORPUSCULAR HGB CONC 34.4 g/dL (33.0-35.0); MEAN CORPUSCULAR VOLUME 86.9 fL (80.0-100.0); MEAN PLATELET VOLUME 7.6 fL (7.4-11.0); MONOCYTES # (AUTO) 0.4 x10^3/uL (0.3-0.8); MONOCYTES % (AUTO) 6.4 % (0.0-13.0); NEUTROPHILS % (AUTO) 73.2 % (42.0-75.0); RED BLOOD COUNT 4.32 X10^6/uL (3.5-5.4); RED CELL DISTRIBUTION WIDTH 14.5 % (11.6-16.5); WHITE BLOOD COUNT 6.9 X10^3/uL (3.6-10.0)
[2021-12-14] MEDS: VSL#3 PO SCH ×2 (08:25→10:12)
[2021-12-14] MEDS: AMPICILLIN VIAL 1 GRAM 1 G in NS 50 ML IV + SPIKE MINIBAG* 50 ML IV SCH ×2 (08:25→08:27)
[2021-12-14 08:34] LABS: ALANINE AMINOTRANSFERASE 11 Units/L (12-78); ALBUMIN 2.6 g/dL (3.4-5.0); ALKALINE PHOSPHATASE 218 Units/L (46-116); ASPARTATE AMINO TRANSFERASE 14 Units/L (15-37); BLOOD UREA NITROGEN 4 mg/dL (7-18); CALCIUM 8.8 mg/dL (8.5-10.1); CARBON DIOXIDE 27.1 mmol/L (21-32); CHLORIDE 103 mmol/L (98-107); COR CA(FOR HYPOALB) 9.9 mg/dL (8.5-10.1); CREATININE 0.56 mg/dL (0.55-1.02); SODIUM 138 mmol/L (136-145); TOTAL PROTEIN 6.3 g/dL (6.4-8.2); eGFR NON BLACK RACES > 60 (>60)
[2021-12-14] MEDS ORDERED: STADOL INJ ONE ×4 (09:23→18:31)
[2021-12-14] MEDS ORDERED: AMPICILLIN VIAL 1 GRAM ONE ×2 (09:47→14:19)
[2021-12-14] MEDS: STADOL INJ IVP PRN ×4 (09:56→18:30)
[2021-12-14] MEDS: AMPICILLIN VIAL 1 GRAM 1 G in NS 100 ML IV 100 ML IV SCH ×2 (10:50→14:50)
[2021-12-14] MEDS ORDERED: ZOFRAN INJ 4 MG VIAL ONE (11:53)
--- NOTE | 2021-12-14 12:00 | DR.OB ---
OB Quick Note - Assessment/Plan Assessment/Plan: L&D 12/14/21 at 11:00am Pitocin=16mu/min. Ampicillin S-No complaint except CTX pain. O-Afebrile,VSS HKO=743 with good LTV, +accel, no decel. CTX=q 3-4 min., about 45-55mmHg CVX=4cm/50%/-1/VTX A-IUP at 39 2/7 weeks for induction +GBS AMA Bipolar d.o. P-Continue pitocin induction Continue ABX in labor for +GBS Anticipate
[2021-12-14] MEDS ORDERED: ANCEF VIAL 1 GRAM ONE (15:28)
[2021-12-14] MEDS ORDERED: NS 100 ML IV 0 ML ONE (15:28)
[2021-12-14] MEDS ORDERED: REGLAN INJ 10 MG VIAL ONE (15:28)
[2021-12-14] MEDS ORDERED: LR 1,000 ML IV 1,000 ML IV ONE (15:28)
[2021-12-14] MEDS ORDERED: PEPCID 20 MG VIAL ONE (15:28)
[2021-12-14] MEDS ORDERED: NS 1,000 ML IV 500 ML IV ONE (16:57)
[2021-12-14] MEDS: NS 1,000 ML IV 1,000 ML ONE ×2 (16:57→17:41)
--- NOTE | 2021-12-14 18:31 | DR.OB ---
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 Head delivered over intact perineum. Nose and mouth bulb suctioned. Nuchal cord x 1 reduced. Body delivered over intact perineum. Cord clamped x 2 and cut. Infant handed to attendant. Cord sent for gases. Placenta delivered spontaneously / intact / 3 vessel cord. No CVX tears noted. A small midline second degree tear noted and repaired with 0-vicryl in usual fashion. Viable male infant, VTX/OA, wt=8'7" and 9/9, stable to NBN. Mother stable to RR. HKW=[id number].
[2021-12-14] MEDS: D5 1/2 NS 1,000 ML 1,000 ML with PITOCIN 20 UNITS IV SCH ×2 (18:42)
[2021-12-14] MEDS ORDERED: MILK OF MAGNESIA PO PRN (19:17)
[2021-12-14] MEDS ORDERED: ADACEL or BOOSTRIX TDaP VACCINE IM ONE ×2 (19:17→23:47)
[2021-12-14] MEDS ORDERED: DERMOPLAST PAIN RELIEF SPRAY TOP PRN (19:17)
[2021-12-14] MEDS ORDERED: AMBIEN PO PRN (19:17)
[2021-12-14] MEDS: MOTRIN TAB 800 MG PO PRN (21:00)
[2021-12-14] MEDS: VISTARIL PO SCH (22:27)
[2021-12-14] MEDS: REGLAN TAB 10 MG PO SCH (23:02)
[2021-12-15 05:18] LABS: HEMATOCRIT 35.5 % (36.0-47.0); HEMOGLOBIN 11.9 g/dL (12.0-16.0)
[2021-12-15] MEDS: VISTARIL PO SCH ×3 (06:42→21:28)
[2021-12-15] MEDS: REGLAN TAB 10 MG PO SCH ×4 (06:42→21:28)
[2021-12-15] MEDS: D5 1/2 NS 1,000 ML 1,000 ML with PITOCIN 20 UNITS IV SCH ×2 (08:24)
[2021-12-15] MEDS: PRENATAL PLUS PO SCH (08:25)
[2021-12-15] MEDS: PROTONIX TAB 40 MG PO SCH (08:26)
[2021-12-15] MEDS: VSL#3 PO SCH (08:27)
[2021-12-15] MEDS: MOTRIN TAB 800 MG PO PRN (17:17)
[2021-12-16] MEDS: REGLAN TAB 10 MG PO SCH (05:29)
[2021-12-16] MEDS: VISTARIL PO SCH (05:29)
[2021-12-16 08:04] VITALS: BP 117/69
[2021-12-16] MEDS: VSL#3 PO SCH (08:20)
[2021-12-16] MEDS: PRENATAL PLUS PO SCH (08:20)
[2021-12-16] MEDS: PROTONIX TAB 40 MG PO SCH (08:21)
== END 2021-12-16 09:30 | disposition home or self-care (01) | DRG 806 ==
LOC: LD 06:10 → MED/SURG 19:41
PROVIDERS: ADMIT Specialist; ATTEND Specialist
DX: Z37.0 Single live birth; Z3A.39 39 weeks gestation of pregnancy; O70.1 Second degree perineal laceration during delivery; O99.343 Other mental disorders complicating pregnancy, third trimester; F99 Mental disorder, not otherwise specified; B95.1 Streptococcus, group B, as the cause of diseases classified elsewhere; K21.9 Gastro-esophageal reflux disease without esophagitis; O99.613 Diseases of the digestive system complicating pregnancy, third trimester; O98.82 Other maternal infectious and parasitic diseases complicating childbirth